=== PATIENT | female | born 1930 | race Caucasian/White ===

== ENCOUNTER 2016-10-17 09:15 | Outpatient (CLI) | END 2016-10-17 09:16 | disposition home or self-care (01) ==

== ENCOUNTER 2017-02-14 14:15 | Outpatient (CLI) | payer MEDICARE, OTHER | END 2017-02-14 14:16 | disposition home or self-care (01) | DX: R31.9 Hematuria, unspecified (principal); R10.9 Unspecified abdominal pain ==

== ENCOUNTER 2017-02-14 16:43 | Outpatient (CLI) | payer MEDICARE, OTHER ==
[2017-02-14] MEDS ORDERED: IOPAMIDOL-300 100 ML VIAL IVP ONE (18:34)
[2017-02-14] MEDS ORDERED: IOPAMIDOL-300 50 ML VIAL PO ONE (18:34)
== END 2017-02-14 16:44 | disposition home or self-care (01) ==
DX: R10.9 Unspecified abdominal pain (principal); I51.7 Cardiomegaly; K57.30 Diverticulosis of large intestine without perforation or abscess without bleeding
CPT/HCPCS: 36415; 74177; 80053; 85025; 87086; Q9967

== ENCOUNTER 2017-09-23 08:25 | Outpatient (CLI) | payer MEDICARE, OTHER ==
[2017-09-23 14:04] LABS: BASOPHILS % (AUTO) 0.5 %; EOSINOPHILS # (AUTO) 0.2 10^3/uL (0.0-0.7); EOSINOPHILS % (AUTO) 3.6 %; HGB - HEMOGLOBIN 12.9 g/dL (12.0-16.0); LYMPHOCYTES # (AUTO) 1.1 10^3/uL (1.5-3.5); MEAN CORPUSCULAR HEMOGLOBIN 30.8 pg (27.0-31.0); MEAN CORPUSCULAR HGB CONC 34.7 g/dL (32.0-36.0); MEAN CORPUSCULAR VOLUME 88.5 fL (81.0-99.0); MEAN PLATELET VOLUME 7.7 fL (7.9-10.8); MONOCYTES # (AUTO) 0.6 10^3/uL (0.0-1.0); MONOCYTES % (AUTO) 12.8 %; NEUTROPHILS % (AUTO) 60.1 %; NUCLEATED RED BLOOD CELLS AUTO 0.1 /100WBC; RED BLOOD COUNT 4.18 10^6/uL (4.20-5.40); RED CELL DISTRIBUTION WIDTH 13.8 % (12.0-15.0); UNCORRECTED WHITE BLOOD COUNT 4.9 x10^3/uL; WHITE BLOOD COUNT 4.9 x10^3/uL (4.8-10.8)
[2017-09-23 14:18] LABS: ALBUMIN/GLOBULIN RATIO 1.7 (1.0-2.2); BILIRUBIN,TOTAL 0.8 mg/dL (0.2-1.0); BUN - BLOOD UREA NITROGEN 23 mg/dL (6-20); CALCIUM 9.6 mg/dL (8.5-10.3); CARBON DIOXIDE - CO2 25 mmol/L (21-32); CHLORIDE 97 mmol/L (101-111); CHOL/HDL RATIO 2.1 (<4.4); CHOLESTEROL 197 mg/dL; CREATININE 0.9 mg/dL (0.4-1.0); GFR - MDRD 59 (>89); GLUCOSE 94 mg/dL (70-100); HDL CHOLESTEROL 93 mg/dL; LDL/HDL RATIO 0.9 (<4.4); POTASSIUM 4.4 mmol/L (3.5-5.0); SODIUM 134 mmol/L (135-145); TOTAL PROTEIN 6.9 g/dL (6.7-8.2); TRIGLYCERIDES 83 mg/dL; VLDL CHOLESTEROL 17 mg/dL
== END 2017-09-23 08:26 | disposition home or self-care (01) ==
LOC: LAB.WCP 08:25
PROVIDERS: ATTEND Family Medicine
DX: E87.1 Hypo-osmolality and hyponatremia (principal); E78.5 Hyperlipidemia, unspecified; E03.9 Hypothyroidism, unspecified; I10 Essential (primary) hypertension
CPT/HCPCS: 36415; 80053; 80061; 84443; 85025

== ENCOUNTER 2018-01-16 08:00 | Outpatient (CLI) | payer MEDICARE, OTHER | END 2018-01-16 08:01 | disposition home or self-care (01) | LOC: LAB.R 08:00 | PROVIDERS: ATTEND Family Medicine | DX: R07.0 Pain in throat (principal) | CPT/HCPCS: 87070 ==